=== PATIENT | female | born 1940 | race Caucasian/White ===

== ENCOUNTER 2016-08-22 04:24 | Emergency (ER) | payer OTHER ==
[~2016-08-22] VITALS: Ht 172.7 cm; Wt 138.6 kg
[~2016-08-22 04:24] MED LIST: Ascorbic Acid,Ester- PO; BENTYL10 MG PO; CARDIZEM60 MG PO; CRESTOR10 MG PO; Flexeril PO; Glucosamine/Chondroi PO; HYDROCHLOROTHIA25 MG PO; LEXAPRO10 MG PO; MAGNACET PO; Prilosec PO; SIMVASTATIN20 M1 PO; THERAGRAN1 TABLET PO; Vitamin B Complex PO; Vitamin-E PO
[2016-08-22 04:52] LABS: HEMATOCRIT 34.6 % (36.0-46.0); MCH 28.9 PG (29.0-34.0); MCHC 30.9 G/DL (30.0-36.0); MCV 93.5 FL (83-99); MEAN PLAT.VOLUME 9.5 uM^3 (9.5-12.4); PLATELET COUNT 281 K/uL (156-360); RBC DIS.WIDTH-CV 14.6 % (11.8-14.6); RBC DIS.WIDTH-SD 47.5 % (39-53); WHITE BLOOD COUNT 6.9 K/uL (4.1-10.2)
[2016-08-22 05:03] LABS: CHLORIDE 108 mEq/L (99-109); POTASSIUM 3.9 mEq/L (3.7-5.4); SODIUM 143 mEq/L (136-147)
[2016-08-22 05:05] LABS: GLUCOSE 118 mg/dL (70-99)
[2016-08-22 05:07] LABS: ANION GAP 10 MEQ/L (2-14)
[2016-08-22 05:09] LABS: GFR ESTIMATE (CALCULATED) 57 mL/min/
[2016-08-22 05:10] LABS: UREA NITROGEN (BUN) 19 mg/dL (9-23)
[2016-08-22 05:25] LABS: D-DIMER ELISA 0.45 mg/L FEU (< 0.57)
[2016-08-22 05:58] LABS: AMYLASE 40 IU/L (1-118)
[2016-08-22 06:03] LABS: SERUM ETHYL ALCOHOL < 10 mg/dL
[2016-08-22 06:07] LABS: LIPASE 37 U/L (1.0-51.0)
[2016-08-22] MEDS ORDERED: FLEXERIL10 MG PO (06:23)
[2016-08-22] MEDS ORDERED: PERCOCET 5/31 TABLET PO (06:23)
[2016-08-22 06:24] LABS: EOSINOPHIL (%) 1.2 % (0-5); EOSINOPHIL COUNT 0.1 K/uL (0-0.3); HEMATOCRIT 33.5 % (36.0-46.0); IMMATURE GRANULOCYTE (%) 0.2 % (0.0-0.7); IMMATURE GRANULOCYTE COUNT 0.1 K/uL; LYMPHOCYTE COUNT 1.5 K/uL (1.0-2.8); MCH 28.7 PG (29.0-34.0); MCHC 30.4 G/DL (30.0-36.0); MCV 94.1 FL (83-99); MEAN PLAT.VOLUME 9.9 uM^3 (9.5-12.4); NEUTROPHIL (%) 58.5 % (45-76); NEUTROPHIL COUNT 3.8 K/uL (1.8-6.4); PLATELET COUNT 287 K/uL (156-360); RBC DIS.WIDTH-CV 14.5 % (11.8-14.6); RBC DIS.WIDTH-SD 47.5 % (39-53); RED BLOOD COUNT 3.56 M/uL (3.80-5.20); WHITE BLOOD COUNT 6.4 K/uL (4.1-10.2)
[2016-08-22 06:30] LABS: TROP-I INTERPRETATION NEGATIVE; TROPONIN-I 0.02 ng/mL (0.0-0.30)
[2016-08-22 06:35] LABS: INTER. NORMALIZED RATIO 2.6; PROTHROMBIN TIME 27.6 (9.2-11.2); PTT 36.6 (25-32)
[2016-08-22 06:43] LABS: ADD MIUA? YES; BILIRUBIN NEGATIVE; BLOOD NEGATIVE; COLOR YELLOW ((YELLOW)); GLUCOSE (STRIP) NEGATIVE; KETONES NEGATIVE; LEUKOCYTES SMALL; NITRITE NEGATIVE; PROTEIN (STRIP) 30; SPECIFIC GRAVITY 1.029 (1.000-1.030); UROBILINOGEN 0.2 MG/DL (0.2-1.0)
[2016-08-22 06:52] LABS: BACTERIA 3+ /HPF; EPITHELIAL CELLS RARE /HPF; MUCUS 2+ /LPF; UCUL ADDED? YES
[2016-08-22] MEDS ORDERED: KEFLEX500 MG PO (06:58)
[2016-08-22] MEDS ORDERED: RANITIDINE HCL300 M1 PO (07:45)
[2016-08-22] MEDS ORDERED: WARFARIN SODIU2.5 MG PO (07:46)
[2016-08-22] MEDS ORDERED: ZYRTEC10 M3 PO (07:47)
[2016-08-22] MEDS ORDERED: AMIODARONE HCL200 MG PO (07:48)
[2016-08-22] MEDS ORDERED: METOPROLOL SUCC50 MG PO (07:51)
[2016-08-22] MEDS ORDERED: PROAIR HFA8.5 GM IH (07:53)
[2016-08-22] MEDS ORDERED: LASIX20 MG PO (07:54)
[2016-08-22] MEDS ORDERED: KLOR-CON M1515 MEQ PO (07:55)
[2016-08-22 08:00] VITALS: BP 138/63
== END 2016-08-22 08:25 | disposition home or self-care (01) ==
LOC: EME 04:24
PROVIDERS: Emergency Medicine
DX: N39.0 Urinary tract infection, site not specified (principal); R10.31 Right lower quadrant pain; E78.5 Hyperlipidemia, unspecified; I10 Essential (primary) hypertension; K21.9 Gastro-esophageal reflux disease without esophagitis
CPT/HCPCS: 80048; 81003; 82150; 83690; 84484; 85025; 85027; 85379; 85610; 85730; 86850; 86900; 86901; 87077; 87086; 87186; 99281; 99285; G0480; J3010

== ENCOUNTER → 2017-08-16 | Outpatient (CLI) | payer OTHER ==
[~2017-08-16] MED LIST changes: +AMIODARONE HCL200 MG PO; +FLEXERIL10 MG PO; +KEFLEX500 MG PO; +KLOR-CON M1515 MEQ PO; +LASIX20 MG PO; +METOPROLOL SUCC50 MG PO; +PERCOCET 5/31 TABLET PO; +PROAIR HFA8.5 GM IH; +RANITIDINE HCL300 M1 PO; +WARFARIN SODIU2.5 MG PO; +ZYRTEC10 M3 PO
== END | disposition home or self-care (01) ==
LOC: RES 10:45
DX: R94.2 Abnormal results of pulmonary function studies (principal)
CPT/HCPCS: 94060; 94726; 94729